=== PATIENT | female | born 1970 | race African-American/Black ===

== ENCOUNTER 2017-09-25 11:30 | Observation (INO) ==
[2017-09-25] MEDS ORDERED: ASPIRIN 325 MG TABLET PO STA (12:02)
[2017-09-25] MEDS ORDERED: METOPROLOL TARTRATE 25 MG TABLET PO STA (12:02)
[2017-09-25] MEDS ORDERED: ONDANSETRON 4 MG/2 ML VIAL IV STA (12:02)
[2017-09-25] MEDS ORDERED: MORPHINE 4 MG/1 ML VIAL IV STA (12:02)
[2017-09-25] MEDS ORDERED: cefTRIAXone 1,000 MG in SODIUM CHLORIDE 0.9% 100 ML IV STA (12:40)
[2017-09-25 12:44] LABS: Apearance,Urine CLEAR (Clear); Bilirubin,Urine Negative (Negative); Blood, Urine Negative (Negative); Glucose,Urine (UA) Negative (Negative); Ketones,Urine Negative (Negative); Mucus,Urine Few /LPF (Occasional); Nitrite,Urine Negative (Negative); Protein,Urine Negative; RBC,Urine 1 /HPF (0-4); Squamous Epithelial Cell,Urine Occasional /HPF (0-10); Urine Color Yellow (Yellow); Urine Specific Gravity 1.016 (1.001-1.035); Urine Urobilinogen < 2.0 EU/DL (0.2-1.0); WBC,Urine <1 /HPF (0-6)
[2017-09-25 12:50] LABS: Basophils % 0.4 % (0.0-0.8); Eosinophils # 0.1 10*3/uL (0.0-0.87); Eosinophils % 1.3 % (0.00-10.9); Hematocrit 36.3 VOL% (35.7-47.0); Hemoglobin 12.1 GM/DL (12.0-16.0); Immature Granulocytes % 0.4 %; Immature Granulocytes Absolute 0.03 #; Lymphocytes # 1.1 10*3/uL (1.4-4.0); Lymphocytes % 15.4 % (21.3-54.2); Mean Corpuscular HGB Conc 33.3 GM/DL (32-36); Mean Corpuscular Hemoglobin 30 PG (27-34); Mean Corpuscular Volume 89.4 FL (87-102); Mean Platelet Volume 10.2 FL (9.6-12.0); Monocytes # 0.5 10*3/uL (0.11-0.8); Monocytes % 6.7 % (1.7-12.7); Neutrophils # 5.5 10*3/uL (1.4-7.4); Neutrophils % 75.8 % (38.7-73.9); Platelet Count 250 T/CUMM (130-400); Red Blood Count 4.06 MC/CUMM (3.8-5.5); Red Cell Distribution Width 13.7 % (9.3-17.3); White Blood Count 7.2 T/CUMM (4-12)
[2017-09-25] MEDS ORDERED: cefTRIAXone 1,000 MG VIAL ONE (12:52)
[2017-09-25 13:08] LABS: Albumin 3.3 G/DL (3.4-5.0); Bilirubin,Total 0.4 MG/DL (0.2-1.0); Osmolality,Calculated 274.5 MOS/KG (273-304); Potassium 3.9 MMOL/L (3.5-5.1); Total Protein 7.4 G/DL (6.4-8.3)
[2017-09-25 13:14] LABS: INR 0.9
[2017-09-25] MEDS ORDERED: MAGNESIUM SULF RIDER 2 GM in PREMIX 1 EACH IV STA (14:51)
[2017-09-25] MEDS ORDERED: ENOXAPARIN 100 MG/ML SYRINGE SUBCUT STA (15:04)
[2017-09-25] MEDS ORDERED: ENOXAPARIN 120 MG/0.8 ML SYRINGE SUBCUT ONE (15:45)
[2017-09-25] MEDS ORDERED: NIFEdipine 10 MG CAPSULE PO PRN (18:03)
[2017-09-25] MEDS ORDERED: DOCUSATE SODIUM 100 MG CAPSULE PO PRN (18:03)
[2017-09-25] MEDS ORDERED: FLUTICASONE 50 MCG NASAL SPRAY 16 GM BOTTLE BOTH NARES PRN (18:03)
[2017-09-25] MEDS ORDERED: traZODone 50 MG TABLET PO PRN (18:03)
[2017-09-25] MEDS: hydroCHLOROthiazide 25 MG TABLET PO SCH (18:20)
[2017-09-25] MEDS ORDERED: ENOXAPARIN 40 MG/0.4 ML SYRINGE SUBCUT SCH (21:00)
[2017-09-26] MEDS: IBUPROFEN 400 MG TABLET PO PRN ×2 (01:37→17:40)
[2017-09-26 03:29] LABS: Basophils % 0.4 % (0.0-0.8); Eosinophils # 0.2 10*3/uL (0.0-0.87); Eosinophils % 2.3 % (0.00-10.9); Hematocrit 35.7 VOL% (35.7-47.0); Hemoglobin 12.3 GM/DL (12.0-16.0); Immature Granulocytes % 0.3 %; Immature Granulocytes Absolute 0.02 #; Lymphocytes # 1.4 10*3/uL (1.4-4.0); Mean Corpuscular HGB Conc 34.5 GM/DL (32-36); Mean Corpuscular Hemoglobin 30 PG (27-34); Mean Corpuscular Volume 87.1 FL (87-102); Mean Platelet Volume 10.4 FL (9.6-12.0); Monocytes # 0.5 10*3/uL (0.11-0.8); Monocytes % 7.8 % (1.7-12.7); Neutrophils # 4.8 10*3/uL (1.4-7.4); Neutrophils % 69.2 % (38.7-73.9); Platelet Count 257 T/CUMM (130-400); Red Cell Distribution Width 13.9 % (9.3-17.3); White Blood Count 6.9 T/CUMM (4-12)
[2017-09-26 04:03] LABS: Calcium 8.5 MG/DL (8.5-10.1); Potassium 3.4 MMOL/L (3.5-5.1); Risk Ratio 3.03; Thyroid Stimulating Hormone 0.358 uIU/ml (0.358-3.74); VLDL CHOLESTEROL 10.6 MG/DL
[2017-09-26] MEDS: hydroCHLOROthiazide 25 MG TABLET PO SCH (08:00)
[2017-09-26] MEDS: PANTOPRAZOLE 40 MG TABLET PO SCH (08:00)
[2017-09-27] MEDS: guaiFENesin/DM ER 600-30 MG TABLET PO SCH ×2 (01:06→08:35)
[2017-09-27 08:25] LABS: Basophils % 0.5 % (0.0-0.8); Eosinophils # 0.2 10*3/uL (0.0-0.87); Eosinophils % 2.6 % (0.00-10.9); Hematocrit 37.2 VOL% (35.7-47.0); Hemoglobin 12.8 GM/DL (12.0-16.0); Immature Granulocytes % 0.3 %; Immature Granulocytes Absolute 0.02 #; Lymphocytes # 0.9 10*3/uL (1.4-4.0); Lymphocytes % 14.9 % (21.3-54.2); Mean Corpuscular HGB Conc 34.4 GM/DL (32-36); Mean Corpuscular Hemoglobin 30 PG (27-34); Mean Corpuscular Volume 87.1 FL (87-102); Mean Platelet Volume 10.6 FL (9.6-12.0); Monocytes # 0.5 10*3/uL (0.11-0.8); Monocytes % 7.3 % (1.7-12.7); Neutrophils # 4.6 10*3/uL (1.4-7.4); Neutrophils % 74.4 % (38.7-73.9); Platelet Count 277 T/CUMM (130-400); Red Blood Count 4.27 MC/CUMM (3.8-5.5); Red Cell Distribution Width 13.8 % (9.3-17.3); White Blood Count 6.2 T/CUMM (4-12)
[2017-09-27] MEDS: hydroCHLOROthiazide 25 MG TABLET PO SCH (08:35)
[2017-09-27] MEDS: PANTOPRAZOLE 40 MG TABLET PO SCH (08:35)
[2017-09-27 09:01] LABS: Calcium 8.9 MG/DL (8.5-10.1); Potassium 3.8 MMOL/L (3.5-5.1)
[2017-09-27 09:16] VITALS: BP 131/80
== END 2017-09-27 13:34 | disposition home or self-care (01) ==
LOC: N.ED 11:30 → N.EDINP 11:30 → N.5E 18:03
PROVIDERS: ADMIT Internal Medicine; ATTEND Internal Medicine